=== PATIENT | male | born 1940 | race Caucasian/White ===

== ENCOUNTER 2017-04-22 21:41 | Inpatient (IN) | payer MEDICARE, BC ==
[2017-04-22] MEDS ORDERED: HEPARIN SODIUM,PORCINE 5,000 UNIT/ML 1 ML VIAL IV PRN (22:14)
[2017-04-22] MEDS ORDERED: ASPIRIN 81 MG PO STA (22:14)
[2017-04-22] MEDS ORDERED: HEPARIN SODIUM,PORCINE 5,000 UNIT/ML 1 ML VIAL IV ONE (22:14)
[2017-04-22] MEDS ORDERED: HEPARIN SOD,PORK IN 0.45% NACL 25,000 UNIT in 0.45% NACL 1 500ML.BAG IV SCH (22:15)
[2017-04-22] MEDS ORDERED: DILTIAZEM 5 MG/ML 5 ML VIAL IV STA (22:15)
--- NOTE | 2017-04-22 22:22 | ED ---
General Adult HPI - General Chief complaint: Shortness of Breath Stated complaint: Sob Time Seen by Provider: 04/22/17 21:58 Source: patient, family, RN notes reviewed, old records reviewed Mode of arrival: ambulatory Limitations: no limitations - History of Present Illness Initial comments: 76 -year-old male presenting with dyspnea and palpitations. Patient is a current smoker. Denies cough. Denies sputum production. Denies fever or chills. Denies chest pain. Symptoms have been present throughout the day today. Denies any abdominal pain. Denies nausea or vomiting. Patient has had some belching and indigestion. No history of atrial fibrillation or arrhythmia. Patient had a positive stress test approximately 3 years ago. No history of known CAD, no history of heart catheterization. Patient also reports a one-year history of calf pain with ambulation. No history of known peripheral vascular disease. - Related Data Home Medications Medication Instructions Recorded Confirmed Atorvastatin [Lipitor] 40 mg PO DAILY 04/22/17 04/22/17 Tamsulosin HCl [Flomax] 0.4 mg PO DAILY 04/22/17 04/22/17 Allergies Allergy/AdvReac Type Severity Reaction Status Date / Time No Known Allergies Allergy Verified 04/22/17 23:22 Review of Systems ROS Statement: Those systems with pertinent positive or pertinent negative responses have been documented in the HPI. ROS Other: All systems not noted in ROS Statement are negative. Past Medical History Past Medical History: Hyperlipidemia, Prostate Disorder History of Any Multi-Drug Resistant Organisms: None Reported Past Surgical History: Hernia Repair Additional Past Surgical History / Comment(s): neck surgery Past Psychological History: No Psychological Hx Reported Smoking Status: Current every day smoker Past Alcohol Use History: None Reported Past Drug Use History: None Reported General Exam Limitations: no limitations General appearance: alert, in no apparent distress Head exam: Present: atraumatic, normocephalic Eye exam: Present: normal appearance, PERRL ENT exam: Present: normal exam, mucous membranes dry Neck exam: Present: normal inspection. Absent: tenderness, meningismus Respiratory exam: Present: wheezes. Absent: respiratory distress Cardiovascular Exam: Present: tachycardia, irregular rhythm GI/Abdominal exam: Present: soft. Absent: distended Extremities exam: Present: normal inspection, full ROM, other (Distal pulses are present as Doppler signal) Neurological exam: Present: alert, oriented X3 Psychiatric exam: Present: normal affect, normal mood Skin exam: Present: warm, dry, intact. Absent: cyanosis, diaphoretic Course Vital Signs 04/22/17 04/22/17 04/22/17 21:45 22:15 22:50 Temperature 97.3 F L Pulse Rate 132 H 124 H Pulse Rate [ 130 H Alcohol Law Enforcement Agent ] Respiratory 20 14 15 Rate Blood Pressure 116/77 131/81 O2 Sat by Pulse 100 98 Oximetry 04/22/17 04/23/17 23:39 00:02 Temperature Pulse Rate 111 H 108 H Pulse Rate [ Alcohol Law Enforcement Agent ] Respiratory 18 18 Rate Blood Pressure 142/74 119/70 O2 Sat by Pulse 97 97 Oximetry EKG Findings - EKG Comments: EKG Findings:: EKG shows atrial fibrillation with RVR, nonspecific intraventricular conduction delay, ST segment depression in both before 5 and 6 Medical Decision Making - Medical Decision Making 76 yo male presenting with dyspnea and palpitations. Patient found to be in atrial fibrillation, symptoms have been present throughout the day today. Chest x-ray shows cardiomegaly, no pulmonary edema or signs of heart failure. Laboratory studies reveal what was considered 0.3, hemoglobin stable 30.4, troponin is 2.96, BNP 9000 150. D-dimer is elevated at 1.61, CT angiography is obtained. CT angiography is negative for PE, there is vascular calcifications consistent with CAD, additional incidental finding of 4 cm ascending aortic aneurysm. Diagnosis: A. fib with RVR, NSTEMI, - Lab Data Result diagrams: 04/22/17 22:05 04/22/17 22:05 Lab Results 04/22/17 04/22/17 04/22/17 Range/Units 22:05 22:05 22:05 WBC 7.3 (3.8-10.6) k/uL RBC 4.85 (4.30-5.90) m/uL Hgb 13.4 (13.0-17.5) gm/dL Hct 42.1 (39.0-53.0) % MCV 86.7 (80.0-100.0) fL MCH 27.7 (25.0-35.0) pg MCHC 32.0 (31.0-37.0) g/dL RDW 13.0 (11.5-15.5) % Plt Count 178 (150-450) k/uL Neutrophils % 76 % Lymphocytes % 17 % Monocytes % 4 % Eosinophils % 1 % Basophils % 0 % Neutrophils # 5.6 (1.3-7.7) k/uL Lymphocytes # 1.3 (1.0-4.8) k/uL Monocytes # 0.3 (0-1.0) k/uL Eosinophils # 0.1 (0-0.7) k/uL Basophils # 0.0 (0-0.2) k/uL PT (9.0-12.0) sec INR (<1.2) APTT (22.0-30.0) sec D-Dimer (<0.60) mg/L FEU Sodium 137 (137-145) mmol/L Potassium 4.3 (3.5-5.1) mmol/L Chloride 101 (98-107) mmol/L Carbon Dioxide 25 (22-30) mmol/L Anion Gap 11 mmol/L BUN 17 (9-20) mg/dL Creatinine 0.93 (0.66-1.25) mg/dL Est GFR (MDRD) Af Amer >60 (>60 ml/min/1.73 sqM) Est GFR (MDRD) Non-Af >60 (>60 ml/min/1.73 sqM) Glucose 117 H (74-99) mg/dL Calcium 10.0 (8.4-10.2) mg/dL Magnesium 2.0 (1.6-2.3) mg/dL Total Bilirubin 0.9 (0.2-1.3) mg/dL AST 52 (17-59) U/L ALT 29 (21-72) U/L Alkaline Phosphatase 155 H (38-126) U/L Total Creatine Kinase 349 H (55-170) U/L CK-MB (CK-2) 20.6 H* (0.0-2.4) ng/mL CK-MB (CK-2) Rel Index 5.9 Troponin I 2.960 H* (0.000-0.034) ng/mL NT-Pro-B Natriuret Pep pg/mL Total Protein 7.2 (6.3-8.2) g/dL Albumin 4.2 (3.5-5.0) g/dL 04/22/17 04/22/17 Range/Units 22:05 22:05 WBC (3.8-10.6) k/uL RBC (4.30-5.90) m/uL Hgb (13.0-17.5) gm/dL Hct (39.0-53.0) % MCV (80.0-100.0) fL MCH (25.0-35.0) pg MCHC (31.0-37.0) g/dL RDW (11.5-15.5) % Plt Count (150-450) k/uL Neutrophils % % Lymphocytes % % Monocytes % % Eosinophils % % Basophils % % Neutrophils # (1.3-7.7) k/uL Lymphocytes # (1.0-4.8) k/uL Monocytes # (0-1.0) k/uL Eosinophils # (0-0.7) k/uL Basophils # (0-0.2) k/uL PT 10.4 (9.0-12.0) sec INR 1.1 (<1.2) APTT 22.8 (22.0-30.0) sec D-Dimer 1.61 H (<0.60) mg/L FEU Sodium (137-145) mmol/L Potassium (3.5-5.1) mmol/L Chloride (98-107) mmol/L Carbon Dioxide (22-30) mmol/L Anion Gap mmol/L BUN (9-20) mg/dL Creatinine (0.66-1.25) mg/dL Est GFR (MDRD) Af Amer (>60 ml/min/1.73 sqM) Est GFR (MDRD) Non-Af (>60 ml/min/1.73 sqM) Glucose (74-99) mg/dL Calcium (8.4-10.2) mg/dL Magnesium (1.6-2.3) mg/dL Total Bilirubin (0.2-1.3) mg/dL AST (17-59) U/L ALT (21-72) U/L Alkaline Phosphatase (38-126) U/L Total Creatine Kinase (55-170) U/L CK-MB (CK-2) (0.0-2.4) ng/mL CK-MB (CK-2) Rel Index Troponin I (0.000-0.034) ng/mL NT-Pro-B Natriuret Pep 9950 pg/mL Total Protein (6.3-8.2) g/dL Albumin (3.5-5.0) g/dL Critical Care Time Critical Care Time: Yes Total Critical Care Time: 35 Disposition Clinical Impression: Atrial fibrillation with RVR, NSTEMI (non-ST elevated myocardial infarction) Disposition: ADMITTED IP TO THIS [facility] Condition: Serious Referrals: Rell Galindo MD [Primary Care Provider] - 1-2 days Decision to Admit Reason: Admit from EC Decision Date: 04/23/17 Decision Time: 00:06
[2017-04-22 22:27] LABS: Basophils % (A) 0 %; Eosinophils # (A) 0.1 k/uL (0-0.7); Eosinophils % (A) 1 %; HCT 42.1 % (39.0-53.0); HGB 13.4 gm/dL (13.0-17.5); Lymphocytes # (A) 1.3 k/uL (1.0-4.8); Lymphocytes % (A) 17 %; MCH 27.7 pg (25.0-35.0); MCV 86.7 fL (80.0-100.0); Mean Platelet Volume 8.4; Monocytes # (A) 0.3 k/uL (0-1.0); Monocytes % (A) 4 %; Neutrophils # (A) 5.6 k/uL (1.3-7.7); Neutrophils % (A) 76 %; Platelet Count 178 k/uL (150-450); RBC 4.85 m/uL (4.30-5.90); WBC 7.3 k/uL (3.8-10.6)
[2017-04-22] MEDS ORDERED: DILTIAZEM 125 MG in SODIUM CHLORIDE 0.9% 100 ML IV ONE (22:30)
--- NOTE | 2017-04-22 22:32 | XR ---
EXAMINATION TYPE: XR chest 2V DATE OF EXAM: 04/22/2017 COMPARISON: NONE HISTORY: Chest pain TECHNIQUE: Frontal and lateral views of the chest are obtained. FINDINGS: Heart appears enlarged. There is no heart failure. There is slight coarsening of interstit ial markings. There are chest leads. There is no pleural effusion. Bones are osteopenic. IMPRESSION: Cardiomegaly. Fibrotic changes. No heart failure.
[2017-04-22 22:36] LABS: ALT 29 U/L (21-72); AST 52 U/L (17-59); Albumin 4.2 g/dL (3.5-5.0); Alkaline Phosphatase 155 U/L (38-126); Anion Gap 11 mmol/L; Blood Urea Nitrogen 17 mg/dL (9-20); Carbon Dioxide 25 mmol/L (22-30); Chloride 101 mmol/L (98-107); Glucose 117 mg/dL (74-99); Potassium 4.3 mmol/L (3.5-5.1); Sodium 137 mmol/L (137-145); Total Bilirubin 0.9 mg/dL (0.2-1.3); Total Protein 7.2 g/dL (6.3-8.2)
[2017-04-22 23:05] LABS: Creatine Kinase MB 20.6 ng/mL (0.0-2.4); Troponin I 2.96 ng/mL (0.000-0.034)
[2017-04-22 23:07] LABS: D-Dimer 1.61 mg/L FEU (<0.60); INR 1.1 (<1.2); Partial Thromboplastin Time 22.8 sec (22.0-30.0); Prothrombin Time 10.4 sec (9.0-12.0)
[2017-04-22] MEDS ORDERED: RX INFO: IV CONTRAST WAS GIVEN 1 EACH MISC MISCELLANE PRN (23:25)
--- NOTE | 2017-04-23 00:16 | CT ---
EXAMINATION TYPE: CT angio chest DATE OF EXAM: 04/22/2017 11:56 PM COMPARISON: NONE HISTORY: R/O PE CT DLP: 216.30 mGycm Automated exposure control for dose reduction was used. CONTRAST: CTA scan of the thorax is performed with IV Contrast, patient injected with 85 mL of Omnipaque 350, p ulmonary embolism protocol. There are 3-D post processed images.. FINDINGS: There are some emphysematous changes at the lung apices. There is mild pleural thickening at the lung apices. There is some groundglass interstitial subpleural density in the posterior mid and lower ruthie g pedroza. Heart is enlarged. I see no filling defects in the pulmonary arteries. There is no pericard ial effusion. There is no significant pleural effusion. There is mild pleural thickening at the poste rior lung bases. I see no mediastinal adenopathy. Thoracic aorta is atheromatous. There is some aneurysmal change in t he thoracic aorta. Aortic arch measures 4 cm. There are some spondylotic changes in the thoracic spin e. IMPRESSION: NO EVIDENCE OF PULMONARY EMBOLISM. PULMONARY INTERSTITIAL FIBROSIS. ATHEROSCLEROTIC VASCULAR DISEASE. 4 CM ANEURYSM OF ASCENDING AORTA. MILD PULMONARY EMPHYSEMA AND APICAL PLEURAL AND PULMONARY SCARRING.
[2017-04-23] MEDS ORDERED: MORPHINE SULFATE 2 MG/ML SYRINGE IV PRN (00:20)
[2017-04-23] MEDS ORDERED: NALOXONE 0.4 MG/ML 1 ML VIAL IV PRN (00:20)
[2017-04-23] MEDS ORDERED: ONDANSETRON 4 MG/2 ML VIAL IVP PRN (00:20)
[2017-04-23] MEDS ORDERED: ACETAMINOPHEN TAB 500 MG TAB PO PRN (00:25)
[2017-04-23] MEDS ORDERED: TEMAZEPAM 15 MG CAP PO PRN (00:25)
[2017-04-23] MEDS ORDERED: SODIUM CHLORIDE 0.9% 1,000 ML IV SCH (00:30)
[2017-04-23 01:25] VITALS: BMI 21.7
[2017-04-23 05:04] LABS: Basophils % (A) 1 %; Eosinophils # (A) 0.1 k/uL (0-0.7); Eosinophils % (A) 1 %; HCT 37.5 % (39.0-53.0); HGB 12.3 gm/dL (13.0-17.5); Lymphocytes # (A) 1.7 k/uL (1.0-4.8); Lymphocytes % (A) 24 %; MCH 27.7 pg (25.0-35.0); MCHC 32.7 g/dL (31.0-37.0); MCV 84.6 fL (80.0-100.0); Mean Platelet Volume 8.8; Monocytes # (A) 0.4 k/uL (0-1.0); Monocytes % (A) 5 %; Neutrophils # (A) 4.7 k/uL (1.3-7.7); Neutrophils % (A) 68 %; Platelet Count 160 k/uL (150-450); RBC 4.44 m/uL (4.30-5.90); RDW 14.4 % (11.5-15.5)
[2017-04-23 05:47] LABS: Creatine Kinase MB 19.8 ng/mL (0.0-2.4); Troponin I 4.02 ng/mL (0.000-0.034)
[2017-04-23 07:52] LABS: ALT 32 U/L (21-72); AST 56 U/L (17-59); Albumin 3.8 g/dL (3.5-5.0); Alkaline Phosphatase 142 U/L (38-126); Anion Gap 10 mmol/L; Blood Urea Nitrogen 15 mg/dL (9-20); Calcium 9.5 mg/dL (8.4-10.2); Carbon Dioxide 22 mmol/L (22-30); Chloride 107 mmol/L (98-107); Glucose 112 mg/dL (74-99); Potassium 4.1 mmol/L (3.5-5.1); Sodium 139 mmol/L (137-145); Total Bilirubin 0.9 mg/dL (0.2-1.3); Total Protein 6.5 g/dL (6.3-8.2)
[2017-04-23] MEDS: ATORVASTATIN 40 MG TAB PO SCH (07:56)
[2017-04-23] MEDS: ASPIRIN 81 MG PO SCH (07:56)
[2017-04-23] MEDS: METOPROLOL TARTRATE 50 MG TAB PO SCH ×2 (07:56→21:40)
[2017-04-23] MEDS: TAMSULOSIN 0.4 MG CAP.ER.24H PO SCH (07:56)
--- NOTE | 2017-04-23 08:21 | P.CRDCN ---
History of Present Illness History of present illness: 76 patient presented with shortness of breath with exertion and palpitations. No chest discomfort no loss of consciousness Past history of positive stress test in the past Dyslipidemia Enlarged prostate Current every day smoker no alcohol use Review of systems: No fever chills or rigors, no cough, phlegm or expectoration , no nausea, vomiting or diarrhea, no hematuria, dysuria, no musculoskeletal complaints, no strokes or seizures, no skin lesions. NO KNOWN DRUG ALLERGIES On examination heart rate in the 70s, afebrile 98.1F, normal respirations nonlabored looks comfortable blood pressure 134/72 mmHg Breath sounds are reduced bilaterally no rhonchi no crackles Heart sounds are irregular no murmurs or gallops no rub Abdomen soft nontender Extremities warm no edema No JVD Twelve-lead ECG shows atrial fibrillation with RVR, underlying left bundle branch block pattern with a QRS width of 124 ms ventricular rate 132 beats a minute with secondary ST-T changes CT of the chest shows 4 cm aneurysm of the ascending aorta Labs are reviewed hemoglobin 12.3, white count is normal CPKs elevated, troponin 2.96 and 4.0 to, BNP greater than 9000 Impression Non-Q wave myocardial infarction Atrial fibrillation with RVR him a symptomatic Shortness of breath and exertion palpitations Left bundle branch block pattern with a QRS width 124 ms Cardiomegaly on chest x-ray Suggest Metoprolol 50 mg twice daily, discontinue IV Cardizem, stop IV heparin Anticoagulate with a NOAC Atorvastatin Baby aspirin Patient wants to go home he does not state home and he does not want an angiogram. I discussed the option of medical treatment versus invasive approach with angiography He does not want this. This was discussed by him with his family members in the past also when he had a positive stress test Suggest medical treatment for coronary artery disease and non-Q-wave myocardial infarction and anticoagulate him rate control for atrial fibrillation Patient follow up with Dr. Rendon in 2 weeks Past Medical History Past Medical History: Hyperlipidemia, Prostate Disorder History of Any Multi-Drug Resistant Organisms: None Reported Past Surgical History: Hernia Repair Additional Past Surgical History / Comment(s): neck surgery Past Anesthesia/Blood Transfusion Reactions: No Reported Reaction Past Psychological History: No Psychological Hx Reported Smoking Status: Current every day smoker Past Alcohol Use History: None Reported Past Drug Use History: None Reported - Past Family History Father Family Medical History: Hyperlipidemia, Myocardial Infarction ([place]) Medications and Allergies Home Medications Medication Instructions Recorded Confirmed Type Atorvastatin [Lipitor] 40 mg PO DAILY 04/22/17 04/22/17 History Tamsulosin HCl [Flomax] 0.4 mg PO DAILY 04/22/17 04/22/17 History Allergies Allergy/AdvReac Type Severity Reaction Status Date / Time No Known Allergies Allergy Verified 04/22/17 23:22 Physical Exam Vitals: Vital Signs Temp Pulse Pulse Pulse Resp BP BP 04/23/17 07:54 98.1 F 76 18 134/72 04/23/17 04:00 97.0 F L 88 18 110/65 04/23/17 01:15 97.0 F L 104 H 18 110/83 04/23/17 01:05 97.0 F L 104 H 18 110/83 04/23/17 00:36 97.1 F L 106 H 18 98/64 04/23/17 00:02 108 H 18 119/70 04/22/17 23:39 111 H 18 142/74 04/22/17 22:50 124 H 15 131/81 04/22/17 22:15 130 H 14 04/22/17 21:45 97.3 F L 132 H 20 116/77 Pulse Ox 04/23/17 07:54 95 04/23/17 04:00 93 L 04/23/17 01:15 99 04/23/17 01:05 99 04/23/17 00:36 98 04/23/17 00:02 97 04/22/17 23:39 97 04/22/17 22:50 98 04/22/17 22:15 04/22/17 21:45 100 Intake and Output 04/22/17 04/23/17 04/23/17 22:59 06:59 14:59 Intake Total 115.56 333.793 Balance 115.56 333.793 Intake: Intake, IV Titration 115.56 93.793 Amount Diltiazem 125 mg In 44.583 Sodium Chloride 0.9% 100 ml @ 5 MG/HR 5 mls/hr IV .Q24H ONE Rx#:[id number] Heparin Sod,Pork in 0.45% 115.56 49.21 NaCl 25,000 unit In 0.45 % NaCl 1 500ml.bag @ 12 UNITS/KG/HR 16.87 mls/hr IV .Q24H [facility] Rx#: [id number] Oral 240 Other: Weight 70.307 kg 70.8 kg Results 04/23/17 04:41 04/23/17 04:41 Cardiac Enzymes 04/22/17 04/22/17 04/23/17 Range/Units 22:05 22:05 04:41 AST 52 (17-59) U/L CK-MB (CK-2) 20.6 H* 19.8 H* (0.0-2.4) ng/mL Troponin I 2.960 H* 4.020 H* (0.000-0.034) ng/mL 04/23/17 Range/Units 04:41 AST 56 (17-59) U/L CK-MB (CK-2) (0.0-2.4) ng/mL Troponin I (0.000-0.034) ng/mL Coagulation 04/22/17 04/23/17 Range/Units 22:05 04:41 PT 10.4 (9.0-12.0) sec APTT 22.8 29.6 (22.0-30.0) sec CBC 04/22/17 04/23/17 Range/Units 22:05 04:41 WBC 7.3 7.0 (3.8-10.6) k/uL RBC 4.85 4.44 (4.30-5.90) m/uL Hgb 13.4 12.3 L (13.0-17.5) gm/dL Hct 42.1 37.5 L (39.0-53.0) % Plt Count 178 160 (150-450) k/uL Comprehensive Metabolic Panel 04/22/17 04/23/17 Range/Units 22:05 04:41 Sodium 137 139 (137-145) mmol/L Potassium 4.3 4.1 (3.5-5.1) mmol/L Chloride 101 107 (98-107) mmol/L Carbon Dioxide 25 22 (22-30) mmol/L BUN 17 15 (9-20) mg/dL Creatinine 0.93 0.83 (0.66-1.25) mg/dL Glucose 117 H 112 H (74-99) mg/dL Calcium 10.0 9.5 (8.4-10.2) mg/dL AST 52 56 (17-59) U/L ALT 29 32 (21-72) U/L Alkaline Phosphatase 155 H 142 H (38-126) U/L Total Protein 7.2 6.5 (6.3-8.2) g/dL Albumin 4.2 3.8 (3.5-5.0) g/dL Current Medications Generic Name Dose Route Start Last Admin Trade Name Freq PRN Reason Stop Dose Admin Acetaminophen 500 mg 04/23/17 00:25 Tylenol Tab PO Q6HR PRN Fever and/ or Pain Alprazolam 0.25 mg 04/23/17 00:25 Xanax PO TID PRN Anxiety Aspirin 81 mg 04/23/17 09:00 04/23/17 07:56 Aspirin PO 81 mg DAILY OSMEL Administration Atorvastatin Calcium 40 mg 04/23/17 09:00 04/23/17 07:56 Lipitor PO 40 mg DAILY OSMEL Administration Metoprolol Tartrate 50 mg 04/23/17 09:00 04/23/17 07:56 Lopressor PO 50 mg BID OSMEL Administration Miscellaneous Information 1 each 04/22/17 23:25 Rx Info: Iv Contrast Was Given MISCELLANE 04/24/17 23:25 DAILY PRN Per Protocol Morphine Sulfate 4 mg 04/23/17 00:20 Morphine Sulfate (Inj) IV Q4HR PRN Severe Pain Naloxone HCl 0.2 mg 04/23/17 00:20 Narcan IV Q2M PRN Opioid Reversal Nicotine 1 patch 04/23/17 09:00 04/23/17 05:49 Habitrol 14mg/24hr Patch TRANSDERM 1 patch DAILY OSMEL Administration Ondansetron HCl 4 mg 04/23/17 00:20 Zofran IVP Q8HR PRN Nausea And Vomiting Tamsulosin HCl 0.4 mg 04/23/17 09:00 04/23/17 07:56 Flomax PO 0.4 mg DAILY OSMEL Administration Temazepam 15 mg 04/23/17 00:25 Restoril PO HS PRN Insomnia Intake and Output 04/22/17 04/23/17 04/23/17 22:59 06:59 14:59 Intake Total 115.56 333.793 Balance 115.56 333.793 Intake: Intake, IV Titration 115.56 93.793 Amount Diltiazem 125 mg In 44.583 Sodium Chloride 0.9% 100 ml @ 5 MG/HR 5 mls/hr IV .Q24H [facility] Rx#:[id number] Heparin Sod,Pork in 0.45% 115.56 49.21 NaCl 25,000 unit In 0.45 % NaCl 1 500ml.bag @ 12 UNITS/KG/HR 16.87 mls/hr IV .Q24H [facility] Rx#: [id number] Oral 240 Other: Weight 70.307 kg 70.8 kg 04/23/17 04:41 04/23/17 04:41
[2017-04-23] MEDS: ALPRAZolam 0.25 MG TAB PO PRN ×3 (08:44→21:41)
[2017-04-23] MEDS ORDERED: NICOTINE 14MG/24HR PATCH TRANSDERM SCH (09:00)
--- NOTE | 2017-04-23 09:28 | HP ---
HISTORY AND PHYSICAL DATE OF ADMISSION: 04/22/2017 CHIEF COMPLAINT: Shortness of breath and palpitations. HISTORY OF PRESENT ILLNESS: This 76-year-old gentleman with a past medical history of multiple medical problems, hyperlipidemia, history of prostate disorder, history of hernia repair being followed by Dr. Rell Galindo in the outpatient setting was noted to have shortness of breath. The patient also was having some palpitations. The family checked the blood pressure and heart rate was found to be 114. The patient taken to [facility] and admitted to the hospital further evaluation and treatment. Patient was found to be in atrial fibrillation with fast ventricular rate, which is new onset. The Cardizem drip was initiated. Of note, the troponins also elevated up to 2.963 indicating acute non-ST segment myocardial infarction. There is no history of fever, rigors or chills. No history of headache, loss of consciousness, seizures. PAST MEDICAL HISTORY: History of hyperlipidemia, history of prostate disorder, history of hernia surgery. MEDICATIONS: Prior to admission include home medications are: 1. Flomax 0.4 daily. 2. Lipitor 40 mg daily. ALLERGIES: None. FAMILY HISTORY: No history of heart disease or strokes in the family. SOCIAL HISTORY: History of smoking currently. No history of alcohol intake. REVIEW OF SYSTEMS: ENT: No diminished hearing or vision. CARDIOVASCULAR: As mentioned. RESPIRATORY: As mentioned earlier. GI no nausea or vomiting. : No dysuria. Nervous system: No numbness or weakness. ALLERGY/IMMUNOLOGY: No asthma or hayfever. Musculoskeletal as mentioned earlier. HEMATOLOGY/ONCOLOGY: No history of anemia. Endocrine no history of hypothyroidism and diabetes. Constitutional: As mentioned earlier. Dermatology: Negative. Rheumatology: Negative. Psychiatric: mentioned earlier. PHYSICAL EXAMINATION: The patient is alert and oriented times three. Pulse 125, irregular, blood pressure 131/81, respiration 15, temperature is normal. Pulse ox 98% on 2 L. HEENT is conjunctivae normal. Oral mucosa moist. Neck is no jugular venous distention. No carotid bruit. No lymph node enlargement. Cardiovascular system: S1, S2 muffled. No S3, no S4. Respiratory: Breath sounds diminished in the bases, a few scattered rhonchi and crackles. ABDOMEN: Soft, nontender. No mass palpable. Legs no edema. No swelling. NERVOUS SYSTEM: Higher functions as mentioned earlier, moves all 4 limbs, no focal motor or sensory deficits. Lymphatics: No lymph nodes palpable in the neck, axillae or groin. Skin no ulcer, rash or bleeding. LABS: CBC within normal limits. D-dimer is 1.61 and troponin 2.[address] was also done which shows no evidence of pulmonary embolism. Pulmonary interstitial fibrosis noted and 4 cm aneurysm of the ascending aorta was also noted. Mild pulmonary emphysema. ASSESSMENT: 1. Atrial fibrillation with fast ventricular rate new onset. 2. Troponin 2.960 acute non-ST segment elevation myocardial infarction possibly. 3. History of nicotine dependence. 4. Hyperlipidemia. 5. Prostate disorder. 6. History of hernia repair. 7. History of neck surgery. 8. History of chronic obstructive pulmonary disease on the CT scan. RECOMMENDATIONS AND DISCUSSION: In this 76-year-old gentleman who presented with multiple complex medical issues, we will monitor the patient closely. Continue with IV heparin. Continue the Cardizem. Cardiology consultation. Continue with antiplatelet agents. IV heparin was initiated. Repeat labs in the morning. Resume the home medications. Guarded prognosis because of multiple complex medical issues and further recommendations to follow. Copy of dictation forwarded to Dr. Rell Galindo who is the primary physician. MMODL / IJN: [id number] /
[2017-04-23 11:17] LABS: Creatine Kinase MB 19.7 ng/mL (0.0-2.4)
[2017-04-23 11:18] LABS: Troponin I 6.86 ng/mL (0.000-0.034)
[2017-04-23] MEDS: NICOTINE 21MG/24HR PATCH TRANSDERM SCH (12:16)
[2017-04-24 03:47] LABS: Appearance,Urine Clear (Clear); Bilirubin,Urine Negative (Negative); Blood,Urine Negative (Negative); Color,Urine Yellow; Glucose,Urine (UA) Negative (Negative); Ketones,Urine Trace (Negative); Leukocyte Esterase,Urine Negative (Negative); Nitrite,Urine Negative (Negative); PH, Urine 6.5 (5.0-8.0); Protein,Urine Negative (Negative); Specific Gravity,Urine 1.019 (1.001-1.035); Urobilinogen,Urine <2.0 mg/dL (<2.0)
[2017-04-24 06:42] LABS: Basophils % (A) 1 %; Eosinophils # (A) 0.1 k/uL (0-0.7); Eosinophils % (A) 2 %; HCT 37.8 % (39.0-53.0); HGB 12.5 gm/dL (13.0-17.5); Lymphocytes # (A) 1.4 k/uL (1.0-4.8); Lymphocytes % (A) 19 %; MCH 28.4 pg (25.0-35.0); MCV 86.1 fL (80.0-100.0); Mean Platelet Volume 8.9; Monocytes # (A) 0.4 k/uL (0-1.0); Monocytes % (A) 5 %; Neutrophils # (A) 5.2 k/uL (1.3-7.7); Neutrophils % (A) 72 %; Platelet Count 144 k/uL (150-450); RBC 4.39 m/uL (4.30-5.90); RDW 13.9 % (11.5-15.5); WBC 7.2 k/uL (3.8-10.6)
--- NOTE | 2017-04-24 06:56 | PN ---
PROGRESS NOTE DATE OF SERVICE: 04/23/2017 This 76-year-old gentleman who was admitted shortness of breath and palpitations, also with features of acute non ST elevation myocardial infarction. The patient is being closely monitored with Cardiology. Cardiology recommended possible cardiac cath. The CT scan of chest showed 4 mm ascending aortic aneurysm with no evidence of pulmonary embolism. The patient apparently wanted to go home, but currently the patient is willing to stay. Medical treatment is being optimized at this time. No chest pain at this time. PAST MEDICAL HISTORY: Reviewed. REVIEW OF SYSTEMS: CARDIOVASCULAR: As mentioned. RESPIRATORY: As mentioned. GI: No nausea. : No dysuria. NERVOUS SYSTEM: As mentioned earlier. CURRENT MEDICATIONS: 1. Tylenol 500 mg q.6h p.r.n. 2. Xanax 0.5 t.i.d. 3. Aspirin 81 mg. 4. Lipitor 40 mg. 5. Lopressor 50 mg p.o. b.i.d. 6. Morphine sulfate 4 mg IV q.4h p.r.n. 7. Narcan 0.2 IV q.2h p.r.n. 8. Habitrol 21 daily. 9. Zofran 4 mg IV q.8h. 10.Flomax 0.4 daily. 11.Restoril 50 mg q.h.s. p.r.n. PHYSICAL EXAM: Patient is alert, oriented x3. Pulse 79. Blood pressure 130/68, respirations 17, temperature is 98.7, pulse ox 100% on room air. HEENT: Conjunctivae normal. Oral mucosa moist. Neck is no jugular venous distention. No carotid bruit. No lymph node enlargement. CARDIOVASCULAR: S1, S2. Ejection systolic murmur. RESPIRATORY: Breath sounds diminished in the bases. A few scattered rhonchi and crackles. ABDOMEN: Soft, nontender. No mass palpable. LEGS: No edema, no swelling. NERVOUS SYSTEM: Higher functions as mentioned earlier, moves all 4 limbs, no focal motor deficits. LYMPHATIC: No lymphadenopathy in the neck or axillae. SKIN: No ulcer, rashes, bleeding. LABS: WBC 7, hemoglobin 12.3, and troponins 2.960, 4.02 and 6.860. ASSESSMENT: 1. Troponin elevated up to 6.860, acute non ST-segment elevation myocardial infarction. 2. Atrial fibrillation with fast ventricular rate new onset. 3. History of nicotine dependence. 4. Hyperlipidemia. 5. History of prostate disorder. 6. History of hernia repair. 7. History neck surgery. 8. History of chronic obstructive pulmonary disease in the CT scan. 9. 4 mm ascending aortic aneurysm. RECOMMENDATION AND DISCUSSION: This 76-year-old gentleman who presented with multiple complex medical issues, at this time I recommend to continue current management and symptomatic treatment. Otherwise I will continue with beta blockers, antiplatelet agents. Continue the medical treatment. 2D echo has been ordered. Otherwise repeat labs. The patient is a candidate for a cardiac catheterization to evaluate coronary anatomy. Otherwise, prognosis guarded. Discussed with the patient. Further recommendations to follow. Follow closely with Cardiology. Further recommendations to follow. MMODL / IJN: [id number] /
[2017-04-24 06:58] LABS: ALT 30 U/L (21-72); AST 53 U/L (17-59); Albumin 3.7 g/dL (3.5-5.0); Alkaline Phosphatase 123 U/L (38-126); Anion Gap 8 mmol/L; Blood Urea Nitrogen 17 mg/dL (9-20); Calcium 9.3 mg/dL (8.4-10.2); Carbon Dioxide 28 mmol/L (22-30); Chloride 103 mmol/L (98-107); Glucose 84 mg/dL (74-99); Potassium 3.9 mmol/L (3.5-5.1); Sodium 139 mmol/L (137-145); Total Bilirubin 1.1 mg/dL (0.2-1.3); Total Protein 6.4 g/dL (6.3-8.2)
[2017-04-24] MEDS ORDERED: Potassium Replacement Protocol 1 EACH MISC MISCELLANE PRN (07:45)
[2017-04-24] MEDS: ATORVASTATIN 40 MG TAB PO SCH (08:29)
[2017-04-24] MEDS: TAMSULOSIN 0.4 MG CAP.ER.24H PO SCH (08:29)
[2017-04-24] MEDS: NICOTINE 21MG/24HR PATCH TRANSDERM SCH (08:29)
[2017-04-24] MEDS: ASPIRIN 81 MG PO SCH (08:29)
[2017-04-24] MEDS: METOPROLOL TARTRATE 50 MG TAB PO SCH (08:29)
[2017-04-24] MEDS ORDERED: POTASSIUM CHLORIDE ER 20 MEQ TAB.ER PO SCH (09:00)
[2017-04-24] MEDS: ALPRAZolam 0.25 MG TAB PO PRN (09:34)
[2017-04-24 12:10] VITALS: RESP 18
--- NOTE | 2017-04-24 14:14 | P.PN ---
Subjective Patient feels a lot better today but is insisting that he was to go home despite the fact that I spoke to him and said that he should stay here for at least another day for further maximization of medical treatment. He has not had any chest discomfort no undue shortness of breath and he has been ambulating a bit in the hallways. On examination he is afebrile 98.4F, pulse rate in the 70s, blood pressure 126/ 69 mmHg Breath sounds are clear no rhonchi no crackles Heart sounds S1 and S2 are normal no murmurs or gallops Abdomen is soft nontender Extremities warm no edema Impression Non-Q wave myocardial infarction, on medical treatment Suggest increase metoprolol to 75 mg by mouth twice a day, aspirin and statins Patient does not want coronary angiography or any invasive workup and the family is in agreement I would recommend that he stay for an additional day for further maximization of medical treatment and follow-up with me in the office. Upon discharge he should be on a baby aspirin, high-dose statins, and maximally tolerated beta blockers at the least Objective - Vital Signs Vital signs: Vital Signs Temp 98.4 F 04/24/17 12:08 Pulse 71 04/24/17 12:08 Resp 18 04/24/17 12:08 BP 126/69 04/24/17 12:08 Pulse Ox 96 04/24/17 12:08 Intake & Output 04/23/17 04/24/17 04/24/17 18:59 06:59 18:59 Intake Total 333.793 477 Output Total 600 Balance -266.207 477 Weight 71.3 kg Intake: Intake, IV Titration 93.793 Amount Diltiazem 125 mg In 44.583 Sodium Chloride 0.9% 100 ml @ 5 MG/HR 5 mls/hr IV .Q24H ONE Rx#:[id number] Heparin Sod,Pork in 0.45% 49.21 NaCl 25,000 unit In 0.45 % NaCl 1 500ml.bag @ 12 UNITS/KG/HR 16.87 mls/hr IV .Q24H OSMEL Rx#: [id number] Oral 240 477 Output: Urine 600 Other: Voiding Method Urinal Urinal Toilet Urinal # Voids 1 1 - Labs CBC & Chem 7: 04/24/17 05:37 04/24/17 05:37 Labs: Abnormal Lab Results - Last 24 Hours (Table) 04/24/17 04/24/17 Range/Units 03:30 05:37 Hgb 12.5 L (13.0-17.5) gm/dL Hct 37.8 L (39.0-53.0) % Plt Count 144 L (150-450) k/uL Urine Ketones Trace H (Negative)
[2017-04-24] MEDS ORDERED: ALPRAZolam 0.25 MG TAB PO STA (15:35)
[2017-04-24 15:48] VITALS: BP 131/73; PULSE 75; TEMP 97.9
--- NOTE | 2017-04-25 14:30 | ECHOF ---
Referral Reason:LV function MEASUREMENTS -------- HEIGHT: 180.3 cm WEIGHT: 70.8 kg BP: 110/65 IVSd: 1.3 cm (0.6 - 1.1) LVIDd: 6.6 cm (3.9 - 5.3) LVPWd: 1.2 cm (0.6 - 1.1) IVSs: 1.7 cm LVIDs: 6.0 cm LVPWs: 1.3 cm RVIDd: 3.0 cm (< 3.3) LAESV Index (A-L): 57.08 ml/m Ao Diam: 3.7 cm (2.0 - 3.7) LA Diam: 5.1 cm (2.7 - 3.8) AV Cusp: 1.6 cm (1.5 - 2.6) MV E Preston: 0.61 m/s MV DecT: 268 ms MV A Preston: 0.35 m/s MV E/A Ratio: 1.72 RAP: 15.00 mmHg RVSP: 38.80 mmHg MV EF SLOPE: 91.53 mm/s (70 - 150) MV EXCURSION: 1.36 cm (> 18.000) FINDINGS -------- Atrial fibrillation. This was a technically good study. The left ventricle is moderately dilated. There is mild concentric left ventricular hypertrophy. Overall left ventricular systolic function is severely impaired with, an EF < 20%. Septal and infer ior garza are akinetic. Apical, lateral, and anterior garza are severely hypokinetic. The right ventricle is normal in size. The right ventricular systolic function is severely impaired . LA is severely dilated >40 ml/m2 RA appears enlarged. Aortic valve is trileaflet and is mildly thickened. Trace amount of aortic regurgitation. There is no evidence of aortic stenosis. The mitral valve leaflets are mildly thickened. Mild mitral annular calcification present. Mild-t o-moderate mitral regurgitation is present. Mild tricuspid regurgitation present. There is borderline pulmonary hypertension. The right ventr icular systolic pressure, as measured by Doppler, is 38.80mmHg. The pulmonic valve was not well visualized. The aortic root size is normal. The inferior vena cava is dilated with poor inspiratory collapse which is consistent with estimated r ight atrial pressure of 20 mmHg. The pericardium is normal. There is no pericardial effusion. CONCLUSIONS -------- 1. Atrial fibrillation. 2. This was a technically good study. 3. The left ventricle is moderately dilated. 4. There is mild concentric left ventricular hypertrophy. 5. Overall left ventricular systolic function is severely impaired with, an EF < 20%. 6. Septal and inferior garza are akinetic. 7. Apical, lateral, and anterior garza are severely hypokinetic. 8. The right ventricular systolic function is severely impaired. 9. LA is severely dilated >40 ml/m2 10. RA appears enlarged. 11. Aortic valve is trileaflet and is mildly thickened. 12. Trace amount of aortic regurgitation. 13. The mitral valve leaflets are mildly thickened. 14. Mild mitral annular calcification present. 15. [id number] mitral regurgitation is present. 16. Mild tricuspid regurgitation present. 17. There is borderline pulmonary hypertension. 18. The right ventricular systolic pressure, as measured by Doppler, is 38.80mmHg. 19. The pulmonic valve was not well visualized. 20. The aortic root size is normal. 21. The inferior vena cava is dilated with poor inspiratory collapse which is consistent with estimat ed right atrial pressure of 20 mmHg. 22. There is no pericardial effusion. PURCHASING SUPERVISOR: Nicholas Mcknight RDCS
--- NOTE | 2017-04-26 11:22 | DS ---
DISCHARGE SUMMARY FINAL DIAGNOSES: 1. Troponin elevated up to 6.[address]-segment elevation myocardial infarction. 2. Atrial fibrillation with fast ventricular rate, new onset. 3. History of nicotine dependence. 4. Hyperlipidemia. 5. History of prostate disorder. 6. History of hernia repair. 7. History of neck surgery. 8. History of chronic obstructive pulmonary disease in the CT scan. 9. 4 cm ascending aortic aneurysm. DISCHARGE DISPOSITION: Patient being discharged in stable condition with guarded prognosis. TOTAL TIME TAKEN: 35 minutes. HISTORY OF PRESENT ILLNESS: This 77-year-old gentleman with past medical history of multiple medical problems, admitted with shortness of breath and atrial fibrillation with fast ventricular rate, troponins elevated to. Otherwise the family and the patient deferred any cardiac catheterization at this time. Otherwise treat medically. Patient improved significantly. On exam, vital signs are stable. Cardiovascular: S1, S2 muffled. Respiratory : Breath sounds diminished in the bases. A few scattered rhonchi. Abdomen soft. Central nervous system: No focal deficits. DISCHARGE ADVICE AND MEDICATIONS: 1. Diet will be cardiac diet. 2. Activity limited until followup. 3. Follow up with Dr. Galindo in 2 to 3 days. 4. Follow up cardiology as advised. MEDICATIONS: 1. Tylenol 500 mg q.6h p.r.n. 2. Xanax 0.5 q.i.d. 3. Aspirin 81 mg daily. 4. Lipitor 40 mg daily. 5. Lopressor 50 mg p.o. b.i.d. 6. Habitrol 21 daily. 7. Flomax 0.4 daily. MMDEXL / KALYANN: [id number] / MTDD
== END 2017-04-24 17:12 | disposition home or self-care (01) | DRG 282 ==
LOC: EC 21:41 → 6SEL 04-23 00:22
PROVIDERS: ADMIT Hospitalist; ATTEND Hospitalist
DX: I21.4 Non-ST elevation (NSTEMI) myocardial infarction (principal); I71.2 Thoracic aortic aneurysm, without rupture; I48.91 Unspecified atrial fibrillation; J44.9 Chronic obstructive pulmonary disease, unspecified; E78.5 Hyperlipidemia, unspecified; F17.200 Nicotine dependence, unspecified, uncomplicated; N40.0 Benign prostatic hyperplasia without lower urinary tract symptoms; I44.7 Left bundle-branch block, unspecified; I51.7 Cardiomegaly; Z82.49 Family history of ischemic heart disease and other diseases of the circulatory system; Z79.899 Other long term (current) drug therapy; Z87.19 Personal history of other diseases of the digestive system
CPT/HCPCS: 36415; 71046; 71275; 80053; 81003; 82550; 82553; 83735; 83880; 84443; 84484; 85025; 85379; 85610; 85730; 93005; 93306; 96365; 96366; 96376; 99291